=== PATIENT | female | born 1965 | race Native Hawaiian/Other Pacific Islander ===

== ENCOUNTER 2018-02-10 13:02 | Emergency (ER) | payer OTHER ==
[2018-02-10 13:09] VITALS: BP 139/92; PULSE 98; RESP 16; TEMP 98; O2SAT 100
[2018-02-10] MEDS ORDERED: Tdap Vaccine 0.5 ml Vial (10-64 yrs) IM ONE ×2 (13:21→13:27)
--- NOTE | 2018-02-10 13:32 | ED PDOC ---
HPI: Wound Care - HPI Time Seen by Provider: 02/10/18 13:20 Chief Complaint (Nursing): Needle Stick Chief Complaint (Provider): Needle Stick History Per: Patient Exam Limitations: no limitations Onset/Duration Of Symptoms: Hrs (x 2) Current Symptoms Are (Timing): Still Present Additional Complaint(s): Soumya is a 52 y/o female with a history of hypothyroid and hypertension who presents to the ED for a needlestick injury with some blood expressed. Patient' s last tetanus is unknown. Her hepatitis B is up to date. PMD: Estelle Price Past Medical History Reviewed: Historical Data, Nursing Documentation, Vital Signs Vital Signs: Last Vital Signs Temp 98.0 F 02/10/18 13:05 Pulse 98 H 02/10/18 13:05 Resp 16 02/10/18 13:05 BP 139/92 H 02/10/18 13:05 Pulse Ox 100 02/10/18 13:05 - Medical History PMH: HTN, Hypothyroidism - Family History Family History: States: Unknown Family Hx - Immunization History Hx Tetanus Toxoid Vaccination: No - Allergies Allergies/Adverse Reactions: Allergies Allergy/AdvReac Type Severity Reaction Status Date / Time iodine Allergy RASH Verified 02/10/18 13:06 shellfish derived Allergy RASH Verified 02/10/18 13:06 Review of Systems ROS Statement: Except As Marked, All Systems Reviewed And Found Negative Musculoskeletal: Positive for: Hand Pain (right thumb needlestick injury) Physical Exam - Reviewed Nursing Documentation Reviewed: Yes Vital Signs Reviewed: Yes - Physical Exam Appears: Positive for: Well, Non-toxic, No Acute Distress Extremity: Positive for: Other (punctate lesion noted right thumb) Neurologic/Psych: Positive for: Alert, Oriented - ECG O2 Sat by Pulse Oximetry: 100 (RA) Pulse Ox Interpretation: Normal - Progress ED Course And Treament: source patient reported negative for HIV Employee does not want any prophylaxis medication. Tdap 0.5 ml IM x 1 dose in ED Medical Decision Making Medical Decision Making: Time: 13:21 Initial Impression: Needlestick Injury Right Thumb Initial Plan: --Tetanus Shot Scribe Attestation: Documented by Adryan Galvez, acting as a scribe for Daryl Motley PA-C Provider Scribe Attestation: All medical record entries made by the Scribe were at my direction and personally dictated by me. I have reviewed the chart and agree that the record accurately reflects my personal performance of the history, physical exam, medical decision making, and the department course for this patient. I have also personally directed, reviewed, and agree with the discharge instructions and disposition. Disposition - Clinical Impression Clinical Impression: Needle stick injury - Patient ED Disposition Is Patient to be Admitted: No - Disposition Disposition: Routine/Home Disposition Time: 13:55 Condition: FAIR Instructions: Blood or Body Fluid Exposure Forms: [employer] ([place])
== END 2018-02-10 14:20 | disposition home or self-care (01) ==
LOC: H.ER 13:02
DX: S69.81XA Other specified injuries of right wrist, hand and finger(s), initial encounter (principal); Z77.21 Contact with and (suspected) exposure to potentially hazardous body fluids; Z04.8 Encounter for examination and observation for other specified reasons; Z23 Encounter for immunization